=== PATIENT | female | born 1990 | race Two or more races ===

== ENCOUNTER → 2019-06-20 | Day surgery (SDC) | payer OTHER ==
[~2019-06-20] MED LIST: ALBUTEROL IH
== END | disposition home or self-care (01) ==
LOC: ADM 06-19 08:15 → CIR.AMB 06:00
DX: H71.21 Cholesteatoma of mastoid, right ear (principal); H90.11 Conductive hearing loss, unilateral, right ear, with unrestricted hearing on the contralateral side